=== PATIENT | male | born 1990 | race Caucasian/White ===

== ENCOUNTER 2019-07-03 09:08 | Emergency (ER) | payer OTHER ==
[2019-07-03 09:54] VITALS: BP 122/66
--- NOTE | 2019-07-03 10:10 | UC ---
Hand/Wrist HPI - HPI Summary HPI Summary: Pt presents with c/o laceration to left 4th finger along anterior mip joint that occurred today at work. He states that he had his finger caught in wheel rim of car. - History Of Current Complaint Chief Complaint: UCUpperExtremity Stated Complaint: WC-LEFT RING FINGER INJURY/LACERATION Time Seen by Provider: 07/03/19 09:53 Hx Obtained From: Patient ?: No Onset/Duration: Sudden Onset, Still Present Severity Initially: Moderate Severity Currently: Moderate Pain Intensity: 6 Character Of Pain: Dull, Aching, Throbbing Aggravating Factor(s): Movement Alleviating Factor(s): Rest Associated Signs And Symptoms: Positive: Swelling, Bruising Related History: Dominant Hand Right - Risk Factors Compartment Syndrome Risk Factors: Pain - Allergies/Home Medications Allergies/Adverse Reactions: Allergies Allergy/AdvReac Type Severity Reaction Status Date / Time No Known Allergies Allergy Verified 07/03/19 09:52 PMH/Surg Hx/FS Hx/Imm Hx Previously Healthy: Yes - Surgical History Surgical History: Yes Surgery Procedure, Year, and Place: appy - Family History Known Family History: Positive: Cardiac Disease - Social History Occupation: Employed Full-time Lives: With Family Alcohol Use: Rare Substance Use Type: None Smoking Status (MU): Current Every Day Smoker Type: Smokeless Tobacco Amount Used/How Often: 1/2 can per day Have You Smoked in the Last Year: Yes - Immunization History Most Recent Tetanus Shot: unknowmn Vaccination Up to Date: No Review of Systems All Other Systems Reviewed And Are Negative: Yes Constitutional: Positive: Negative Skin: Positive: Bruising, Other - laceration left 4th finger Eyes: Positive: Negative ENT: Positive: Negative Respiratory: Positive: Negative Cardiovascular: Positive: Negative Gastrointestinal: Positive: Negative Genitourinary: Positive: Negative Motor: Positive: Decreased ROM - pain with ROM left 4th finger Neurovascular: Positive: Negative Musculoskeletal: Positive: Myalgia - left 4th finger Neurological: Positive: Negative Psychological: Positive: Negative Is Patient Immunocompromised?: No Physical Exam Triage Information Reviewed: Yes Appearance: Well-Appearing, Pain Distress - with left 4th finger movement Vital Signs: Initial Vital Signs Temp 97.3 F 07/03/19 09:47 Pulse 71 07/03/19 09:47 Resp 16 07/03/19 09:47 BP 122/66 07/03/19 09:47 Pulse Ox 100 07/03/19 09:47 Vital Signs Reviewed: Yes Eye Exam: Normal ENT: Positive: Hearing grossly normal Dental Exam: Normal Neck exam: Normal Respiratory: Positive: No respiratory distress Musculoskeletal Exam: Normal Musculoskeletal: Positive: Strength Intact, ROM Intact Neurological Exam: Normal Neurological: Positive: Alert Psychological Exam: Normal Skin Exam: Other - multiple lacerations left 4th finger UC Physical Exam Triage Information Reviewed: Yes Vital Signs On Initial Exam: Initial Vitals Temp Pulse Resp BP Pulse Ox 97.3 F 71 16 122/66 100 07/03/19 09:47 07/03/19 09:47 07/03/19 09:47 07/03/19 09:47 07/03/19 09:47 Procedures - Laceration/Wound Repair 1 Location: upper extremity - left hand Description: Irregular Betadine Prep?: No Laceration/Wound Explored: contaminated Closure: SteriStrips Debridement: minimal Layer Closure?: No Sterile Dressing Applied?: No Diagnostics - Radiology No standard instances Radiology Interpretation Completed By: Radiologist - Utilities Equipment Repairer: Rupesh Gupta F ([id number]) Air Tester: NAT (NAT) Report Date: 10:01:00 Report Status: Final Start of Report Content = Patient Name: MICHELLE LEBRON Medical Record#: [id number] Ordering Physician: Chrystal Macdonald NP Acct.#: [id number] : 1990 Age: 28 Sex: M Location: [facility] Exam Date: 07/03/19 1001 ADM Status: REG ER Order Information: FINGER LEFT RING Accession Number: [id number] CPT: 02798 INDICATION: Left ring finger crush injury. TECHNIQUE: 3 views of the left ring finger were obtained. FINDINGS: There is soft tissue swelling and a soft tissue defect anterior to the distal interphalangeal joint. There is a incomplete nondisplaced intra-articular fracture at the base of the distal phalanx. Joint spaces appear maintained. IMPRESSION: INCOMPLETE NONDISPLACED INTRA-ARTICULAR FRACTURE BASE OF THE DISTAL PHALANX. <Electronically signed by Rupesh Gupta MD in OV> 07/03/19 1020 Dictated By: Rupesh Gupta MD Dictated Date/Time: 1019 Transcribed Date/Time: 07/03/19 1019 Copy to: CC:Daniel Thompson MD; Chrystal Macdonald INTERACTIVE DESIGNER; No Primary Care Phys,NOPCP Imaging - [facility] Imaging - [facility] Imaging - [facility] [address] [address] ph [phone]) ph [phone]) ph ([phone]) End of Report Content Hand/Wrist Course/Dx - Course Course Of Treatment: I spoke with Dr. Ibarra who recommended "tacking down" the lacerations. The pt' s skin was stained and covered with car grease and oil. Therefore, I decided to allow for healing by secondary intent and to minimize infection. No sutures were placed. - Differential Dx/Diagnosis Differential Diagnosis/HQI/PQRI: Fracture Provider Diagnosis: Laceration of left ring finger, Fracture of distal phalanx of left ring finger Discharge ED - Sign-Out/Discharge Documenting (check all that apply): Patient Departure All imaging exams completed and their final reports reviewed: Yes - Discharge Plan Condition: Stable Disposition: HOME Prescriptions: Cephalexin CAP* [Keflex 500 CAP*] 500 mg PO Q6H #40 cap Patient Education Materials: Finger Laceration (ED), Skin Adhesive Care (ED) Forms: *Work Release Referrals: John Pérez MD [Medical Doctor] - If Needed John Ibarra MD [Medical Doctor] - As Soon As Possible No Primary Care Phys,NOPCP [Primary Care Provider] - Additional Instructions: Please follow up with Dr. Ibarra or a orthopedic provider of your choice. Please monitor for any signs of infection that include but are not limited to increased pain, redness, purulent discharge, and/or swelling. - Billing Disposition and Condition Condition: STABLE Disposition: Home
[2019-07-03] MEDS ORDERED: Lidocaine 1% MPF ** 5 ML VIAL INJ ONE (10:16)
[2019-07-03] MEDS ORDERED: Tetan/Diph/Pertus SYR(Tdap)* 0.5 ML SYR(BOOSTRIX) use SYR IM ONE (10:35)
--- NOTE | 2019-07-03 10:39 | UC ---
Laceration HPI - HPI Summary HPI Summary: Pt presents with c/o laceration to left 4th finger along anterior mip joint that occurred today at work. He states that he had his finger caught in wheel rim of car. - History Of Current Complaint Chief Complaint: UCUpperExtremity Stated Complaint: WC-LEFT RING FINGER INJURY/LACERATION Time Seen by Provider: 07/03/19 09:53 Hx Obtained From: Patient Laceration Location: Finger Mechanism Of Injury: Sharp Trauma Onset/Duration: Sudden Onset Severity: Moderate Pain Intensity: 6 Aggravating Factors: Position, Movement Related History: Occupational Injury, Dominant Hand Right - Allergies/Home Medications Allergies/Adverse Reactions: Allergies Allergy/AdvReac Type Severity Reaction Status Date / Time No Known Allergies Allergy Verified 07/03/19 09:52 PMH/Surg Hx/FS Hx/Imm Hx Previously Healthy: Yes - Surgical History Surgical History: Yes Surgery Procedure, Year, and Place: appy - Family History Known Family History: Positive: Cardiac Disease - Social History Occupation: Employed Full-time Lives: With Family Alcohol Use: Rare Substance Use Type: None Smoking Status (MU): Current Every Day Smoker Type: Smokeless Tobacco Amount Used/How Often: 1/2 can per day Have You Smoked in the Last Year: Yes - smokeless - Immunization History Most Recent Tetanus Shot: unknowmn Review of Systems All Other Systems Reviewed And Are Negative: Yes Constitutional: Positive: Negative Skin: Positive: Bruising, Other - laceration left 4th finger, mip joint anterior Eyes: Positive: Negative ENT: Positive: Negative Respiratory: Positive: Negative Cardiovascular: Positive: Negative Gastrointestinal: Positive: Negative Genitourinary: Positive: Negative Motor: Positive: Negative Neurovascular: Positive: Negative Musculoskeletal: Positive: Edema - left 4th finger, Myalgia - left 4th finger Neurological: Positive: Negative Psychological: Positive: Negative Is Patient Immunocompromised?: No Physical Exam Triage Information Reviewed: Yes Appearance: Well-Appearing Vital Signs: Initial Vital Signs Temp 97.3 F 07/03/19 09:47 Pulse 71 07/03/19 09:47 Resp 16 07/03/19 09:47 BP 122/66 07/03/19 09:47 Pulse Ox 100 07/03/19 09:47 Vital Signs Reviewed: Yes Eye Exam: Normal ENT Exam: Normal ENT: Positive: Hearing grossly normal Dental Exam: Normal Neck exam: Normal Respiratory: Positive: No respiratory distress Musculoskeletal Exam: Normal Musculoskeletal: Positive: Strength Intact, ROM Intact Neurological Exam: Normal Psychological Exam: Normal Skin Exam: Other - laceration left 4th finger at MIP joint Laceration Repair - Laceration Repair 1 Procedure Summary: Pt Xray demonstrated nondisplaced fracture, I discussed how to close laceration with Dr. Ibarra and he agreed to steri strip and skin adhesive as laceration included skin avulsion Description: Irregular Laceration Size After Repair: Length (cm), Width (mm) - 5, Depth (mm) - 4 Modified For Repair: No Irrigation With Pressure Irrigation Device: Yes Closure Material: Skin Adhesive, SteriStrips Closure Method: Single Layer Suture Of: Skin Diagnostics - Radiology No standard instances Radiology Interpretation Completed By: Radiologist - Electronic Masking System Operator: Rupesh Gupta F ([id number]) Alumni Relations Coordinator: NAT (NAT) Report Date: 10:01:00 Report Status: Final Start of Report Content = Patient Name: MICHELLE LEBRON Medical Record#: [id number] Ordering Physician: Chrystal Macdonald CURB WORKER Acct.#: [id number] : 1990 Age: 28 Sex: M Location: [facility] Exam Date: 07/03/19 1001 ADM Status: REG ER Order Information: FINGER LEFT RING Accession Number: [id number] CPT: 05058 INDICATION: Left ring finger crush injury. TECHNIQUE: 3 views of the left ring finger were obtained. FINDINGS: There is soft tissue swelling and a soft tissue defect anterior to the distal interphalangeal joint. There is a incomplete nondisplaced intra-articular fracture at the base of the distal phalanx. Joint spaces appear maintained. IMPRESSION: INCOMPLETE NONDISPLACED INTRA-ARTICULAR FRACTURE BASE OF THE DISTAL PHALANX. <Electronically signed by Rupesh Gupta MD in OV> 07/03/19 1020 Dictated By: Rupesh Gupta MD Dictated Date/Time: 1019 Transcribed Date/Time: 07/03/19 1019 Copy to: CC:Daniel Thompson MD; Chrystal Macdonald CURB WORKER; No Primary Care Phys,NOPCP Imaging - [facility] Imaging - [facility] Imaging - [facility] [address] [facility] [address] [address] ph [phone]) ph ([phone]) ph ([phone]) End of Report Content Laceration Course/Dx - Differential Dx - Laceration/Wound Differental Diagnoses: Avulsion, Fracture, Laceration - Diagnosis Provider Diagnosis: Laceration of left ring finger, Fracture of distal phalanx of left ring finger Discharge ED - Sign-Out/Discharge Documenting (check all that apply): Patient Departure All imaging exams completed and their final reports reviewed: Yes - Discharge Plan Condition: Stable Disposition: HOME Prescriptions: Cephalexin CAP* [Keflex 500 CAP*] 500 mg PO Q6H #40 cap Patient Education Materials: Finger Laceration (ED), Skin Adhesive Care (ED) Forms: *Work Release Referrals: John Pérez MD [Medical Doctor] - If Needed John Ibarra MD [Medical Doctor] - As Soon As Possible No Primary Care Phys,NOPCP [Primary Care Provider] - Additional Instructions: Please follow up with Dr. Ibarra or a orthopedic provider of your choice. Please monitor for any signs of infection that include but are not limited to increased pain, redness, purulent discharge, and/or swelling. - Billing Disposition and Condition Condition: STABLE Disposition: Home
== END 2019-07-03 11:21 | disposition home or self-care (01) ==
LOC: UCCORT 09:08
DX: S61.215A Laceration without foreign body of left ring finger without damage to nail, initial encounter (principal); W26.9XXA Contact with unspecified sharp object(s), initial encounter; Y92.89 Other specified places as the place of occurrence of the external cause; F17.210 Nicotine dependence, cigarettes, uncomplicated; Z23 Encounter for immunization
CPT/HCPCS: 73140; 90715; 99203; G0463